=== PATIENT | male | born 1955 | race Caucasian/White ===

== ENCOUNTER → 2017-07-28 | Outpatient (CLI) | payer OTHER | LOC: CV 10:48 | DX: R07.2 Precordial pain (principal) ==

== ENCOUNTER → 2018-11-24 | Outpatient (CLI) | payer OTHER | LOC: LAB 15:36 | DX: N20.0 Calculus of kidney (principal); R97.20 Elevated prostate specific antigen [PSA] ==

== ENCOUNTER → 2020-03-06 | Outpatient (CLI) | payer OTHER | LOC: RAD 13:24 | PROVIDERS: ATTEND Urology | DX: K80.20 Calculus of gallbladder without cholecystitis without obstruction (principal); R97.20 Elevated prostate specific antigen [PSA]; I87.8 Other specified disorders of veins; Z98.890 Other specified postprocedural states ==